=== PATIENT | male | born 1975 | race Caucasian/White ===

== ENCOUNTER → 2024-09-12 07:17 | Outpatient (REF) | payer OTHER, SELFPAY | LOC: HWRCS 07:17 | PROVIDERS: ATTENDING PHYSICIAN Family Medicine | DX: I10 Essential (primary) hypertension (principal); R94.31 Abnormal electrocardiogram [ECG] [EKG]; E78.2 Mixed hyperlipidemia | CPT/HCPCS: 93306 ==